=== PATIENT | male | born 1955 | race American Indian/Alaskan Native ===

== ENCOUNTER 2020-09-16 15:22 | Outpatient (CLI) | payer MEDICARE, OTHER, SELFPAY ==
--- NOTE | 2020-09-16 15:45 | MR_ITS ---
WS: [id number] MRI RIGHT SHOULDER HISTORY: RT SHOULDER INJURY COMPARISON: None available. TECHNIQUE: Multiplanar sequences of the shoulder joint are submitted. Mild hypertrophic changes at the AC joint. Small osteophytes encroach towards the rotator cuff. There are small cystic changes in the distal acromion. Humeral head is high riding causing significant tal rowing of the acromial humeral joint space. No os acromion. Torn and dislocated biceps tendon. Biceps tendon is no longer present in the bicipital groove. Tendon is retracted torn and retracted to the glenoid. Biceps tendon courses posterior to the humeral head near the labrum, subscapularis tendon is also torn and retracted at least to the glenoid. Probably a chronic tears as there is significant atrophy involving the subscapularis muscle. Anterior labrum is also torn. Complete tear with retraction of the supraspinatus tendon. Tendon is identified just medial to the gl enoid and there is thinning and narrowing of the remnant. Moderate atrophy of the supraspinatus muscl e. There is an additional insertion site tear of the infraspinatus tendon there is marked thickening of the tendon. There is fluid and increased T2 signal extending along the tendon sheath. Infraspinatu s muscle is not atrophied. There is a small amount of fluid in the subacromial/subdeltoid bursa and also in the glenohumeral arturo nt space. No fracture. MR/MR shoulder RT wo con* [id number] IMPRESSION: 1. Torn retracted biceps tendon. Biceps tendon is retracted to the glenohumera l space. 2. Torn retracted subscapularis tendon with a torn anterior labrum. Marked atr ophy of the subscapularis muscle indicative of chronic tear. 3. Complete tear with retraction of the supraspinatus tendon, thin tendon medi al to the glenoid. 4. Insertion site tear infraspinatus tendon. 5. High riding humeral head.
== END 2020-09-16 15:23 | disposition home or self-care (01) ==
LOC: RADWPI 15:28
PROVIDERS: PCP Physician Assistant Medical; Visit Provider Physician Assistant Medical
DX: S49.91XA Unspecified injury of right shoulder and upper arm, initial encounter (principal); X58.XXXA Exposure to other specified factors, initial encounter; M75.101 Unspecified rotator cuff tear or rupture of right shoulder, not specified as traumatic
CPT/HCPCS: 73221

== ENCOUNTER → 2022-01-04 07:44 | Outpatient (BNVA) | payer MEDICARE, OTHER, SELFPAY | PROVIDERS: PCP Physician Assistant Medical; Visit Provider Surgery | DX: K40.20 Bilateral inguinal hernia, without obstruction or gangrene, not specified as recurrent (principal); K21.9 Gastro-esophageal reflux disease without esophagitis | CPT/HCPCS: 99203 ==

== ENCOUNTER 2022-01-15 05:39 | Day surgery (SDC) | payer MEDICARE, OTHER, SELFPAY ==
[2022-01-13 10:03] VITALS: BMI 31.6
[2022-01-15 06:00] VITALS: BP 110/70; PULSE 78; RESP 18; TEMP 36.4; O2SAT 96
[2022-01-15] MEDS: sodium chloride 0.9% 1,000 ML 30 ML IV (06:05)
--- NOTE | 2022-01-15 06:33 | P.ANESASSM_ITS ---
Pre-Anesthetic Assessment Height/Weight: Height 1.73 m Weight 94.347 kg Temp Pulse Resp BP Pulse Ox 97.5 F L 78 18 110/70 96 01/15/22 06:00 01/15/22 06:00 01/15/22 06:00 01/15/22 06:00 01/15/22 06:00 Operation Date: 01/15/22 07:00 Proposed Procedures p EGD 76492/K21.9(Not Applicable) - Osmar Poole DO Familial anesthetic complications: none Was Beta Gagandeep taken within 24 hours: N/A Was Clonidine taken within 24 hours: N/A Last intake: Intake Last Liquid Date 01/14/22 Last Liquid Time 22:30 Last Solid Date 01/14/22 Last Solid Time 18:30 Social Tobacco and No alcohol chews tobacco Exam alert, oriented x 3, clear to auscultation bilaterally and regular rate & rhythm Airway Mallampati: Class III Dentition: chipped Pulmonary None reported CV/HEM Hypertension None reported Hepatic None reported GI Gastroesophageal Reflux Disease Metabolic Diabetes Mellitus and Hyperlipidemia [facility] [place] R shoulder surgery and L knee surgery Neuropsych None reported Anesthetic Plan ASA status: 2 Anesthesia: MAC Risk of > 500 ml blood loss (7ml/kg in children): No Medications/Allergies Home Medications Medication Instructions Recorded Confirmed Last Taken Type atorvastatin 10 mg tablet 10 mg PO DAILY 01/04/22 01/13/22 01/14/22 History famotidine 40 mg tablet 40 mg PO BID 01/04/22 01/13/22 01/14/22 History losartan 50 mg tablet 50 mg PO DAILY 01/04/22 01/13/22 01/14/22 History metformin 1,000 mg tablet 1,000 mg PO DAILY 01/04/22 01/13/22 01/14/22 History metformin 500 mg tablet 500 mg PO DAILY 01/04/22 01/15/22 01/13/22 History Allergies Allergy/AdvReac Type Severity Reaction Status Date / Time tramadol Allergy Intermediate ADR-Dizzine Verified 01/15/22 05:59 ss Current Medications Generic Name Dose Route Start Last Admin Trade Name Freq PRN Reason Stop Dose Admin Sodium Chloride 1,000 mls @ 30 mls/hr 01/15/22 06:00 01/15/22 06:05 Sodium Chloride 0.9% IV 01/16/22 05:59 30 mls/hr .Q24H MARU Administration PFSH Anesthesia Medical History (Updated 01/04/22 @ 09:44 by Osmar Poole DO) Bilateral inguinal hernia Diabetes mellitus Essential hypertension Gastroesophageal reflux disease Hyperlipidemia Surgical History (Updated 01/04/22 @ 08:33 by Osmar Poole DO) History of appendectomy History of back surgery History of colonoscopy History of esophagogastroduodenoscopy History of knee surgery Family History Other Cancer Diabetes Social History Smoking and tobacco status: light tobacco smoker (chew) smokeless tobacco Data Anesthesia Cardiac Studies: No Data to Display
[2022-01-15 07:18] VITALS: BP 116/67; PULSE 78; RESP 18; TEMP 36.1; O2SAT 90
[2022-01-15 07:20] VITALS: PULSE 77; RESP 18; O2SAT 93
[2022-01-15 07:23] VITALS: BP 116/76; PULSE 79; RESP 18; O2SAT 94
[2022-01-15 07:30] VITALS: BP 114/79; PULSE 79; RESP 18; O2SAT 93
--- NOTE | 2022-01-15 07:32 | W.PM.OPSUD ---
Surgery/Procedure H&P Update DATE OF PROCEDURE: January 15, 2022 DATE H&P PERFORMED: 01/04/22 CHANGES TO PREVIOUS DOCUMENTATION: none PRIMARY INDICATION FOR PROCEDURE: GERD PLANNED PROCEDURE: Operation Date: 01/15/22 07:00 Proposed Procedures p EGD 09032/K21.9(Not Applicable) - Osmar Poole DO
--- NOTE | 2022-01-15 08:53 | ANE.PACU2 ---
Inpatient post-anesthesia follow up: Airway intact: Yes Vital signs: Temperature 97 F Pulse Rate 79 Respiratory Rate 18 Blood Pressure 114/79 Pulse Oximetry 93 Oxygen Delivery Me thod Room Air Oxygen Flow Rate 3 Fraction of Inspir ed Oxygen Hydration adequate: Yes Nausea and vomiting: No Pain level: 1 Mental status: Baseline
== END 2022-01-15 07:52 | disposition home or self-care (01) ==
PROVIDERS: PCP Registered Nurse; Visit Provider Surgery
PROC: 0DJ08ZZ Inspection of Upper Intestinal Tract, Via Natural or Artificial Opening Endoscopic (ICD-10-PCS; CPT 43235; principal; 2022-01-15 07:00)
DX: K21.9 Gastro-esophageal reflux disease without esophagitis (principal); K22.70 Barrett's esophagus without dysplasia; K29.70 Gastritis, unspecified, without bleeding; E11.9 Type 2 diabetes mellitus without complications; E78.5 Hyperlipidemia, unspecified; F17.220 Nicotine dependence, chewing tobacco, uncomplicated; I10 Essential (primary) hypertension
CPT/HCPCS: 43239; 88305; J2704; J7030

== ENCOUNTER → 2022-01-28 13:16 | Outpatient (BNVA) | payer MEDICARE, OTHER, SELFPAY | PROVIDERS: PCP Registered Nurse; Visit Provider Surgery | DX: Z09 Encounter for follow-up examination after completed treatment for conditions other than malignant neoplasm (principal) | CPT/HCPCS: 99211; 99212; G0463 ==

== ENCOUNTER → 2022-04-13 07:48 | Outpatient (BNVA) | payer MEDICARE, OTHER, SELFPAY | PROVIDERS: PCP Registered Nurse; Visit Provider Surgery | DX: K40.20 Bilateral inguinal hernia, without obstruction or gangrene, not specified as recurrent (principal) | CPT/HCPCS: 99213 ==

== ENCOUNTER 2022-05-03 09:08 | Day surgery (SDC) | payer MEDICARE, OTHER, SELFPAY ==
[2022-05-03] VITALS (14 sets, daily range): BP systolic 95–190; BP diastolic 64–104; PULSE 53–87; RESP 13–21; TEMP 36.4–36.6; O2SAT 90–97
--- NOTE | 2022-05-03 09:52 | P.ANESASSM_ITS ---
Pre-Anesthetic Assessment Height/Weight: Height 1.73 m Weight 94.801 kg O2 Del Method 05/03/22 09:48 Preop Diagnosis: Bilateral inguinal hernias Operation Date: 05/03/22 11:15 Proposed Procedures p bilateral laparascopic inguinal hernia repair with [id number] x2,K40.20(Bilateral) - Osmar Poole DO Familial anesthetic complications: None Was Beta Gagandeep taken within 24 hours: N/A Was Clonidine taken within 24 hours: N/A Last intake: Intake Last Liquid Date 05/02/22 Last Liquid Time 21:30 Last Solid Date 05/02/22 Last Solid Time 21:30 Social Tobacco (Oral, nothing today ) and No alcohol (Former ETOH use ) Exam alert, oriented x 3, clear to auscultation bilaterally and regular rate & rhythm Airway Submandibular: within normal limits Cervical ROM: within normal limits Mallampati: Class I Comments: Comments: Very poor dentition, multiple chipped upper teeth History/ROS No significant complaints Pulmonary None reported CV/HEM Hypertension METS > 4 None reported Hepatic None reported GI Gastroesophageal Reflux Disease (Well controlled ) Metabolic Diabetes Mellitus and Hyperlipidemia [facility] [place] Inguinal hernia Neuropsych None reported Anesthetic Plan ASA status: 2 Anesthesia: Anesthesia Evaluation and General Other: We discussed risk and benefits of general anesthesia including PONV, sore throat (sometimes severe), corneal abrasion, positioning and peripheral nerve injuries, life threatening allergic reaction, post operative ICU admission requiring prolonged intubation, stroke, heart attack, , and rare incidences of recall. Patient consents to proceed with general anesthesia. Risk of > 500 ml blood loss (7ml/kg in children): No Medications/Allergies Home Medications Medication Instructions Recorded Confirmed Last Taken Type atorvastatin 10 mg tablet 10 mg PO DAILY 01/04/22 05/03/22 05/02/22 History losartan 50 mg tablet 50 mg PO DAILY 01/04/22 05/03/22 05/02/22 History metformin 1,000 mg tablet 1,000 mg PO DAILY 01/04/22 05/03/22 05/02/22 History metformin 500 mg tablet 500 mg PO DAILY 01/04/22 05/03/22 05/02/22 History pantoprazole 20 mg tablet,delayed 20 mg PO DAILY 30 days #30 tabs 04/13/22 0 05/03/22 05/02/22 Rx release (Protonix) gabapentin 600 mg tablet 600 mg PO TID 04/30/22 05/03/22 05/02/22 History Allergies Allergy/AdvReac Type Severity Reaction Status Date / Time tramadol Allergy Intermediate ADR-Dizzine Verified 05/03/22 09:44 [facility] Anesthesia Medical History Bilateral inguinal hernia Diabetes mellitus Essential hypertension Gastroesophageal reflux disease Hyperlipidemia Surgical History History of appendectomy History of back surgery History of colonoscopy History of esophagogastroduodenoscopy History of knee surgery Family History Other Cancer Diabetes Social History Smoking and tobacco status: never smoked Data Anesthesia Cardiac Studies: No Data to Display
--- NOTE | 2022-05-03 10:01 | ECG_ITS ---
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 Measurements Intervals [place] Rate: 58 P: 35 MD: 217 QRS: -12 QRSD: 112 T: 31 QT: 399 QTc: 395 Interpretive Statements SINUS BRADYCARDIA WITH FIRST DEGREE AV BLOCK MODERATE INTRAVENTRICULAR CONDUCTION DELAY [110+ ms QRS DURATION] No previous ECG available for comparison Electronically Signed On 05-03-2022 18:13:32 CDT by Wilmar Rivera M.D. [id number]
--- NOTE | 2022-05-03 10:03 | W.PM.OPSUD ---
Surgery/Procedure H&P Update DATE OF PROCEDURE: May 03, 2022 DATE H&P PERFORMED: 04/13/22 PREOP DIAGNOSIS: Bilateral inguinal hernias PLANNED PROCEDURE: Operation Date: 05/03/22 11:15 Proposed Procedures p bilateral laparascopic inguinal hernia repair with [id number] x2,K40.20(Bilateral) - Osmar Poole DO
[2022-05-03] MEDS: sodium chloride 0.9% 1,000 ML 30 ML IV (10:10)
[2022-05-03] MEDS: ceFAZolin 2,000 MG in sodium chloride 0.9% (plus) 50 ML 100 MG IV (10:30)
[2022-05-03 10:36] LABS: Anion Gap 12.5 (5-19); Blood Urea Nitrogen 10 mg/dL (8-23); Carbon Dioxide 25 mmol/L (22-29); Chloride 109 mmol/L (98-107); Glomerular Filtration Rate 113.2 mL/min (90-130); Glucose 165 mg/dL (65-115); Osmolality Calculated 297 mOsm/kg (285-295); Potassium 4.5 mmol/L (3.5-5.1); Sodium 142 mmol/L (136-145)
--- NOTE | 2022-05-03 11:43 | P.OP_ITS ---
Operative Report Date of procedure: May 03, 2022 Pre-op diagnosis: Preop Diagnosis Bilateral inguinal hernias Post-op diagnosis: same Procedure done: Laparoscopic repair bilateral inguinal hernias with mesh Implants: Left and right extra-large 3D max mesh Surgeon: Dr. Osmar Poole, Anesthesia: General Estimated blood loss (mL): 5 Complications: None apparent Brief History: This is a very pleasant 67-year-old gentleman who presented to the office with bilateral inguinal hernias. Laparoscopic repair of bilateral inguinal hernias with mesh was indicated. The risks and benefits were explained and documented. Procedure: Patient was wheeled into the operative room and placed on the OR table in a supine position.? Abdomen was inspected prepped and draped in usual sterile fashion.? Time-out was performed and all present were in agreement.? A 15 blade scalpel was used to make 1.2 centimeter incision infraumbilically.? Combination of sharp and blunt dissection was performed down to the anterior rectus sheath which was opened sharply.? The dissecting balloon was then inserted into the space of Retzius and blown up.? We put the camera into the port and identified that we were in the correct space.? I then placed 2 5 millimeter trocars suprapubically in the midline.? I then used endokitners to bluntly dissect in the space of Retzius out laterally.? An indirect inguinal hernia was identified on the right. Blunt dissection was performed to dissect down the hernia sac until the vas deferens dove medially.? An extra large right inguinal mesh was then placed into the space of Retzius.? The mesh was unrolled and tacked once medially at the pubic bone.? The mesh laid out nicely over the spermatic cord.? An indirect inguinal hernia was identified on the left. Blunt dissection was performed to dissect down the hernia sac until the vas deferens dove medially.? An extra large left inguinal mesh was then placed into the space of Retzius.? The mesh was unrolled and tacked once medially at the pubic bone.? The mesh laid out nicely over the spermatic cord. I watched the hernia sacs remain in place as insufflation was removed.? Incisions were closed with 4 O Vicryl in a sub cuticular interrupted fashion.? Skin glue was applied. ? Patient tolerated the procedure well.
[2022-05-03] MEDS: fentaNYL 50 mcg/mL INJ 2mL IVP ×2 (12:00→12:15)
[2022-05-03] MEDS: meperidine 50 mg/mL INJ 12.5 MG IVP (12:30)
[2022-05-03] MEDS: HYDROcodone-acetaminophen 7.5-325 mg Tablet 1 TAB PO (13:00)
--- NOTE | 2022-05-03 14:17 | ANE.PACU2 ---
Inpatient post-anesthesia follow up: Airway intact: Yes Vital signs: Temperature 97.5 F Pulse Rate 64 Respiratory Rate 18 Blood Pressure 142/68 Pulse Oximetry 91 Oxygen Delivery Me thod Room Air Oxygen Flow Rate 8 Fraction of Inspir ed Oxygen Hydration adequate: Yes Nausea and vomiting: No Pain level: 4 Mental status: Baseline
[2022-05-04 05:12] LABS: Glucose Point of Care 165 mg/dL (70-110)
== END 2022-05-03 13:45 | disposition home or self-care (01) ==
PROVIDERS: PCP Registered Nurse; Visit Provider Surgery
PROC: (CPT 49650; principal; 2022-05-03 11:05)
DX: K40.20 Bilateral inguinal hernia, without obstruction or gangrene, not specified as recurrent (principal); E11.9 Type 2 diabetes mellitus without complications; I10 Essential (primary) hypertension; E78.5 Hyperlipidemia, unspecified; Z79.84 Long term (current) use of oral hypoglycemic drugs; Z88.5 Allergy status to narcotic agent
CPT/HCPCS: 49650; 36415; 36416; 51702; 80048; 82962; 93005; C1781; J1100; J2175; J2370; J2405; J2704; J3010; J3490; J7030

== ENCOUNTER → 2022-05-18 08:13 | Outpatient (BNVA) | payer MEDICARE, OTHER, SELFPAY | PROVIDERS: PCP Registered Nurse; Visit Provider Surgery | DX: Z98.890 Other specified postprocedural states (principal); K40.20 Bilateral inguinal hernia, without obstruction or gangrene, not specified as recurrent; K21.9 Gastro-esophageal reflux disease without esophagitis | CPT/HCPCS: 99024 ==

== ENCOUNTER → 2022-06-18 09:32 | Outpatient (BNVA) | payer MEDICARE, OTHER, SELFPAY | PROVIDERS: PCP Registered Nurse; Visit Provider Surgery | DX: Z98.890 Other specified postprocedural states (principal); Z87.19 Personal history of other diseases of the digestive system; N50.811 Right testicular pain | CPT/HCPCS: 99024 ==

== ENCOUNTER 2022-08-19 13:52 | Outpatient (CLI) | payer MEDICARE, OTHER, SELFPAY ==
--- NOTE | 2022-08-19 14:15 | US_ITS ---
WS: [id number] TESTICULAR ULTRASOUND HISTORY: Right testicular pain COMPARISON: None available. TECHNIQUE: Real-time and color Doppler imaging or utilized to perform a testicular ultrasound. Right testicle: 2.6 cm x 3.7 cm x 2.0 cm. Normal size and echogenicity. No mass or torsion. Normal color Doppler is present throughout. Systolic and diastolic velocities are both present. No significant hydrocele. Right epididymis: Normal epididymis with no increased vascularity. Small RIGHT scrotal varicosity. Left testicle: 4.3 cm x 3.1 cm x 1.9 cm. Normal size and echogenicity. No mass or torsion. Normal color Doppler is present throughout. Systolic and diastolic velocities are both present. Small hydrocele. Left epididymis: Normal epididymis with no increased vascularity. US/US scrotum [id number] IMPRESSION: 1. No testicular mass or torsion. 2. Small simple LEFT hydrocele and a small RIGHT varicocele.
== END 2022-08-19 13:53 | disposition home or self-care (01) ==
LOC: RAD 13:56
PROVIDERS: PCP Registered Nurse; Visit Provider Surgery
DX: N43.3 Hydrocele, unspecified (principal); I86.1 Scrotal varices
CPT/HCPCS: 76870

== ENCOUNTER 2022-11-25 15:48 | Outpatient (CLI) | payer MEDICARE, OTHER, SELFPAY ==
--- NOTE | 2022-11-25 16:05 | CT_ITS ---
WS: [id number] CT ABDOMEN AND PELVIS WITH CONTRAST HISTORY: LOWER ABDOMINAL PAIN TECHNIQUE: Imaging performed of the abdomen and pelvis with IV contrast. Single phase imaging of the abdomen. Coronal and sagittal reformats are submitted. All CT scans at [facility] use at [address] one of these dose optimization techniques: automated exposure control; mA and/or kV adjustment per patient size (includes targeted exams where dose is matched to clinical indication); or iterative re construction. IV CONTRAST: Omnipaque 350; 100 mL IV. Oral contrast: No DLP: 721.83 mGy.cm COMPARISON: None available. Lower thorax: Lung bases are clear. Heart is normal size. No hiatal hernia. Liver/biliary system: Normal size with no intrahepatic dilatation. Gallbladder: Mildly contracted. No adjacent inflammation. Pancreas: Normal size pancreas and pancreatic duct. No adjacent inflammation. Spleen: Normal size spleen. No mass or infarct. Adrenal glands: Normal. Right kidney: Normal. Left kidney: Normal. Aorta: Mild atherosclerosis with no aneurysm. Lymphadenopathy: None. Free fluid: None. GI tract: Stomach is markedly distended with fluid. No small bowel obstruction. Diverticulum from the medial duodenal C-loop. The appendix is not identified. No colon obstruction. No evidence for divert iculitis. Abdominal wall: Fat containing umbilical hernia. Pelvis: No free fluid or adenopathy within the pelvis. Surgical clips at the RIGHT inguinal region fr om prior hernia repair. No recurrent hernia. Bones: RIGHT SI joint narrowing with partial fusion. Mild curvature lumbar spine. CT/CT abdomen pelvis w con* [id number] IMPRESSION: 1. No acute abdominal or pelvic abnormalities are identified. 2. No RIGHT lower quadrant abnormality. Postsurgical changes at the RIGHT ingu inal level from prior hernia repair. 3. Marked distention of the stomach with fluid. No obstructive process identif ied at the duodenal C-loop. Consider gastroparesis. Small duodenal diverticulum . 4. Atherosclerosis aorta. 5. Very mildly contracted gallbladder, may be due to nonfasting state.
[2022-11-25] MEDS: iohexol 350 mg/mL 500 mL Btl (per mL) IV (16:13)
== END 2022-11-25 15:49 | disposition home or self-care (01) ==
LOC: RAD 15:51
PROVIDERS: PCP Registered Nurse; Visit Provider Nurse Practitioner Family
DX: R10.30 Lower abdominal pain, unspecified (principal); R14.0 Abdominal distension (gaseous); I70.0 Atherosclerosis of aorta; K82.8 Other specified diseases of gallbladder
CPT/HCPCS: 74177; Q9967

== ENCOUNTER → 2023-05-17 14:29 | Outpatient (BNVA) | payer MEDICARE, OTHER, SELFPAY | PROVIDERS: PCP Registered Nurse; Referring Provider Registered Nurse; Visit Provider Orthopaedic Surgery | DX: M48.062 Spinal stenosis, lumbar region with neurogenic claudication (principal); M51.36 Other intervertebral disc degeneration, lumbar region | CPT/HCPCS: 72100; 99204 ==

== ENCOUNTER 2023-06-08 15:32 | Outpatient (CLI) | payer MEDICARE, OTHER, SELFPAY ==
--- NOTE | 2023-06-08 16:00 | MR_ITS ---
WS: [id number] MRI LUMBAR SPINE NONCONTRAST HISTORY: lumbar pain, history of surgery several years ago. COMPARISON: None available. TECHNIQUE: Sagittal and axial multisequence imaging is submitted. Mild increase in the thoracic kyphosis. Several Schmorl's nodes defects in the thoracic spine. No cor d compression. Normal lumbar alignment with no compression fractures or marrow edema. Very mild disc space narrowing and desiccation, most significant at L5-S1. Conus terminates normally at L1-2 disc level. L1-L2: Mild facet arthritis. No stenosis. L2-L3: Mild annular disc bulging and osteophytic ridging. Disc encroachment upon the subarticular rec esses and the traversing L3 nerve roots. Moderate facet joint arthritis and ligamentum flavum hypertr ophy. Moderate RIGHT and mild LEFT foraminal stenosis. L3-L4: Asymmetric disc bulging. Broad-based disc bulging to the LEFT. Disc displaces and flattens the LEFT lateral thecal sac and extends into the subarticular recesses. Disc contacts both traversing L4 nerve roots but much greater displacement of the LEFT L4 nerve root. Mild bilateral foraminal stenos is. Mild facet arthritis. L4-L5: Diffuse annular disc bulging with osteophytic ridging. Central disc protrusion. Near complete effacement of fat in the neural foramina. Nerve roots are clumped within the thecal sac. Marked facet joint arthritis. Increased soft tissue in the RIGHT neural foramen and subarticular recess. Suspect disc protrusion. Moderate bilateral foraminal stenosis. More significant encroachment into the RIGHT subarticular recess and proximal foramen. L5-S1: Mild annular disc bulging. There is a central disc protrusion or calcified disc/osteophyte enc roaching upon the thecal sac. There is mild contact on the S1 nerve roots. Thecal sac is being deform ed. Mild bilateral subarticular recess and foraminal stenosis. Severe facet arthritis. Cortical 5 mm RIGHT renal cyst. IMPRESSION: 1. L4-5: Annular disc bulging with a central protrusion and osteophytic ridging. Increased soft tissu e in the RIGHT neural foramen and subarticular recess, suspect disc protrusion resulting in encroachm ent into the RIGHT subarticular recess contacting the RIGHT L5 nerve root. Additional moderate bilate ral foraminal stenosis. Marked facet arthritis. 2. L3-4: Broad-based asymmetric disc bulging to the LEFT. LEFT disc protrusion extends into the subar ticular recess and foramen. Disc contacts both traversing L4 nerve roots but much greater on the LEFT . Mild bilateral foraminal stenosis. 3. L2-3: Moderate RIGHT and mild LEFT foraminal stenosis. 4. L5-S1: Central disc protrusion versus calcified disc osteophyte with mild contact on the S1 nerve roots. Mild bilateral subarticular recess and foraminal stenosis.
== END 2023-06-08 15:33 | disposition home or self-care (01) ==
LOC: RAD 15:33
PROVIDERS: PCP Registered Nurse; Visit Provider Orthopaedic Surgery
DX: M51.36 Other intervertebral disc degeneration, lumbar region (principal); M48.07 Spinal stenosis, lumbosacral region; M51.27 Other intervertebral disc displacement, lumbosacral region
CPT/HCPCS: 72148

== ENCOUNTER → 2023-06-16 07:26 | Outpatient (BNVA) | payer MEDICARE, OTHER, SELFPAY | PROVIDERS: PCP Registered Nurse; Visit Provider Orthopaedic Surgery | DX: M48.062 Spinal stenosis, lumbar region with neurogenic claudication (principal); Z09 Encounter for follow-up examination after completed treatment for conditions other than malignant neoplasm | CPT/HCPCS: 72100; 99204 ==

== ENCOUNTER → 2023-07-07 10:57 | Outpatient (BNVA) | payer MEDICARE, OTHER, SELFPAY | PROVIDERS: PCP Registered Nurse; Visit Provider Anesthesiology Pain Medicine | DX: M48.062 Spinal stenosis, lumbar region with neurogenic claudication (principal); M51.16 Intervertebral disc disorders with radiculopathy, lumbar region | CPT/HCPCS: 99204 ==

== ENCOUNTER → 2023-07-28 13:25 | Outpatient (BNVA) | payer MEDICARE, OTHER, SELFPAY | PROVIDERS: PCP Registered Nurse; Visit Provider Anesthesiology Pain Medicine | DX: M54.16 Radiculopathy, lumbar region (principal); M48.062 Spinal stenosis, lumbar region with neurogenic claudication | CPT/HCPCS: 64483; 64484; J1100; J3490 ==

== ENCOUNTER → 2023-08-10 13:08 | Outpatient (BNVA) | payer MEDICARE, OTHER, SELFPAY | PROVIDERS: PCP Registered Nurse; Visit Provider Anesthesiology Pain Medicine | DX: M54.16 Radiculopathy, lumbar region (principal); M48.062 Spinal stenosis, lumbar region with neurogenic claudication | CPT/HCPCS: 64483; 64484; J1100; J3490 ==

== ENCOUNTER → 2023-08-25 09:29 | Outpatient (BNVA) | payer MEDICARE, OTHER, SELFPAY | PROVIDERS: PCP Registered Nurse; Visit Provider Anesthesiology Pain Medicine | DX: M48.062 Spinal stenosis, lumbar region with neurogenic claudication; M51.16 Intervertebral disc disorders with radiculopathy, lumbar region; M25.512 Pain in left shoulder | CPT/HCPCS: 73030; 99215 ==

== ENCOUNTER → 2023-09-07 13:43 | Outpatient (BNVA) | payer MEDICARE, OTHER, SELFPAY | PROVIDERS: PCP Registered Nurse; Visit Provider Anesthesiology Pain Medicine | DX: M54.16 Radiculopathy, lumbar region (principal); M48.062 Spinal stenosis, lumbar region with neurogenic claudication | CPT/HCPCS: 62323 ==

== ENCOUNTER → 2023-09-20 08:25 | Outpatient (BNVA) | payer MEDICARE, OTHER, SELFPAY | PROVIDERS: PCP Registered Nurse; Visit Provider Anesthesiology Pain Medicine | DX: M17.11 Unilateral primary osteoarthritis, right knee (principal); M48.062 Spinal stenosis, lumbar region with neurogenic claudication; M51.16 Intervertebral disc disorders with radiculopathy, lumbar region | CPT/HCPCS: 99214 ==

== ENCOUNTER → 2023-09-21 10:17 | Outpatient (BNVA) | payer MEDICARE, OTHER, SELFPAY | PROVIDERS: PCP Registered Nurse; Visit Provider Anesthesiology Pain Medicine | DX: M17.11 Unilateral primary osteoarthritis, right knee (principal) | CPT/HCPCS: 20610; 99214; J1030; J3490 ==

== ENCOUNTER → 2023-10-05 09:35 | Outpatient (BNVA) | payer MEDICARE, OTHER, SELFPAY | PROVIDERS: PCP Registered Nurse; Visit Provider Anesthesiology Pain Medicine | DX: M19.012 Primary osteoarthritis, left shoulder (principal); M48.062 Spinal stenosis, lumbar region with neurogenic claudication; M25.561 Pain in right knee; M51.16 Intervertebral disc disorders with radiculopathy, lumbar region | CPT/HCPCS: 20610; 99214; J1030; J3490 ==

== ENCOUNTER → 2023-11-08 07:34 | Outpatient (BNVA) | payer MEDICARE, OTHER, SELFPAY | PROVIDERS: PCP Registered Nurse; Visit Provider Orthopaedic Surgery | DX: M48.062 Spinal stenosis, lumbar region with neurogenic claudication (principal) | CPT/HCPCS: 99214 ==

== ENCOUNTER 2025-01-16 07:34 | Outpatient (CLI) | payer MEDICARE, OTHER, SELFPAY ==
--- NOTE | 2025-01-16 07:39 | NM_ITS ---
WS: [id number] NUCLEAR MEDICINE HIDA SCAN CLINICAL INFORMATION: RUQ PAIN TECHNIQUE: Following intravenous administration of 7.8 mCi of technetium 99m mebrofenin, images of the abdomen were obtained over the course of 60 minutes. Next, gallbladder ejection fraction was determined by obtaining preprandial and one-hour postprandial images of the gallbladder following oral ingestion of Ensure. COMPARISON: None. FINDINGS: Normal hepatic uptake at 5 minutes. Normal hepatic excretion. Gallbladder is visualized by 20 minutes. No evidence of acute cholecystitis. Normal common bile duct and small bowel activity. Gallbladder ejection fraction 89% within normal limits. No evidence of chronic cholecystitis. NM/NM hepatobiliary w phar* [id number] IMPRESSION: 1. No evidence of acute or chronic cholecystitis. 2. Gallbladder ejection fraction 89% within normal limits.
== END 2025-01-16 07:35 | disposition home or self-care (01) ==
PROVIDERS: PCP Registered Nurse; Visit Provider Registered Nurse
DX: R10.13 Epigastric pain (principal)
CPT/HCPCS: 78227; A9537

== ENCOUNTER → 2025-04-08 14:02 | Outpatient (BNVA) | payer MEDICARE, OTHER, SELFPAY | PROVIDERS: PCP Registered Nurse; Referring Provider Registered Nurse; Visit Provider Anesthesiology Pain Medicine | DX: M48.062 Spinal stenosis, lumbar region with neurogenic claudication (principal); M51.16 Intervertebral disc disorders with radiculopathy, lumbar region; M25.569 Pain in unspecified knee; F17.220 Nicotine dependence, chewing tobacco, uncomplicated | CPT/HCPCS: 99214 ==

== ENCOUNTER → 2025-04-30 13:35 | Outpatient (BNVA) | payer MEDICARE, OTHER, SELFPAY | PROVIDERS: PCP Registered Nurse; Visit Provider Anesthesiology Pain Medicine | DX: M54.16 Radiculopathy, lumbar region (principal); Z01.818 Encounter for other preprocedural examination; E11.9 Type 2 diabetes mellitus without complications | CPT/HCPCS: 36416; 64483; 64484; J1100; J3490; J9999 ==

== ENCOUNTER → 2025-05-14 08:09 | Outpatient (BNVA) | payer MEDICARE, OTHER, SELFPAY | PROVIDERS: PCP Registered Nurse; Visit Provider Anesthesiology Pain Medicine | DX: M48.062 Spinal stenosis, lumbar region with neurogenic claudication (principal); M51.16 Intervertebral disc disorders with radiculopathy, lumbar region; M25.569 Pain in unspecified knee | CPT/HCPCS: 99214 ==

== ENCOUNTER → 2025-05-29 08:21 | Outpatient (BNVA) | payer MEDICARE, OTHER, SELFPAY | PROVIDERS: PCP Registered Nurse; Visit Provider Anesthesiology Pain Medicine | DX: M54.16 Radiculopathy, lumbar region (principal); E11.9 Type 2 diabetes mellitus without complications | CPT/HCPCS: 36416; 64483; 64484; J1100; J3490; J9999 ==

== ENCOUNTER → 2025-05-30 09:12 | Outpatient (BNVA) | payer MEDICARE, OTHER, SELFPAY | PROVIDERS: PCP Registered Nurse; Visit Provider Anesthesiology Pain Medicine | DX: E11.9 Type 2 diabetes mellitus without complications (principal); Z01.818 Encounter for other preprocedural examination | CPT/HCPCS: 36416; 82962 ==